=== PATIENT | male | born 1960 | race Caucasian/White ===

== ENCOUNTER → 2017-10-17 | Outpatient (CLI) | payer MEDICARE ==
--- NOTE | 2017-10-17 10:01 | RAD ---
CT Abdomen and Pelvis without contrast History: Ascending colitis, history of kidney cancer and left nephrectomy Technique: Noncontrast CT imaging was performed of the abdomen and pelvis. Patient declined intravenous contrast. Multiplanar images are reviewed. Exposure: One or more of the following individualized dose reduction techniques were utilized for this examination: 1. Automated exposure control 2. Adjustment of the mA and/or kV according to patient size 3. Use of iterative reconstruction technique. Comparison: October 07, 2017 [facility] Findings: Accurate evaluation of bowel is limited without oral contrast. There is some persistent wall thickening of the proximal ascending colon/cecum overall similar. There is adjacent hazy and strandy inflammatory change although decreased. There is no new free air. The is questionable mild persistent pneumatosis. There is no new defined extraluminal fluid collection. No new inflammatory change or free fluid is identified. The appendix is again somewhat dilated about 0.9 cm although more internal gas on this exam, no new inflammatory change. There is retained stool greater of the transverse colon. Small bowel is not significantly dilated. There is again distention of the gallbladder without obvious intraluminal abnormality by CT. There is no new obvious abnormality liver, pancreas, spleen. There is no adrenal nodularity. There again has been left nephrectomy. There is multilevel lumbar facet degenerative change. There is likely hemangioma of the L2 vertebral body. There is likely [id number] spinal stenosis L3-4. Impression: 1. Wall thickening of the proximal ascending colon/cecum persists although decreased associated inflammatory change, some questionable mild persistent pneumatosis. There is no new free air or free fluid. Appendix caliber is somewhat dilated as seen previously although now more internal gas and not associated with inflammatory change. 2. There again has been left nephrectomy. 3. There is similar distention of the gallbladder. Electronically signed by: Dimitry Gottlieb MD (10/17/2017 9:58 AM) [id number]
== END | disposition home or self-care (01) ==
LOC: CT 08:47
PROVIDERS: ATTEND Surgery
DX: K82.8 Other specified diseases of gallbladder (principal); E11.9 Type 2 diabetes mellitus without complications; Z85.528 Personal history of other malignant neoplasm of kidney
CPT/HCPCS: 74176

== ENCOUNTER → 2017-11-12 | Outpatient (CLI) | payer MEDICARE ==
--- NOTE | 2017-11-12 10:22 | RAD ---
CT abdomen pelvis without intravenous contrast History: Follow-up ascending colitis. Left nephrectomy for malignancy. Comparison: CT abdomen pelvis October 17, 2017. Technique: CT of the abdomen and pelvis was performed without intravenous or oral contrast. Exposure: One or more of the following individualized dose reduction techniques were utilized for this examination: 1. Automated exposure control 2. Adjustment of the mA and/or kV according to patient size 3. Use of iterative reconstruction technique Findings: Evaluation of solid organs is limited by lack of intravenous contrast. Evaluation of enteric structures may be limited by lack of oral contrast. Liver, spleen, pancreas, and bilateral adrenal glands are unremarkable. Gallbladder is distended. Left nephrectomy changes are seen. No recurrent mass is seen at the nephrectomy site. The right kidney and ureter are free stone or obstruction. Urinary bladder is unremarkable. No free air or free fluid is seen in the abdomen or pelvis. Umbilical hernia repair with mesh is seen; no recurrent hernia is identified. Small fat-containing left inguinal hernia is present. Appendix is without evidence of inflammation. Since comparison study, there is interval improvement in inflammatory change involving the right colon. There is less surrounding fat stranding as well as decreased degree of wall thickening. Impression: 1. Interval improvement in inflammatory change involving the right colon with residual wall thickening and fat inflammation present. 2. No perforation or abscess is identified. Electronically signed by: Jhon Yao MD (11/12/2017 10:18 AM) [place] [id number]
== END | disposition home or self-care (01) ==
LOC: CT 08:51
PROVIDERS: ATTEND Surgery
DX: K52.89 Other specified noninfective gastroenteritis and colitis (principal); K40.90 Unilateral inguinal hernia, without obstruction or gangrene, not specified as recurrent; E11.9 Type 2 diabetes mellitus without complications; K82.8 Other specified diseases of gallbladder; Z85.528 Personal history of other malignant neoplasm of kidney; Z90.5 Acquired absence of kidney
CPT/HCPCS: 74176